=== PATIENT | male | born 1975 | race Caucasian/White ===

== ENCOUNTER 2016-04-09 23:22 | Emergency (ER) | payer OTHER ==
[~2016-04-09] VITALS: Ht 175.3 cm; Wt 89.8 kg
[~2016-04-09 23:22] MED LIST: ALFUZOSIN HCL E10 MG PO; AUGMENTIN 875 M1 TAB PO; AZITHROMYCIN250 M1 PO; BENTYL10 MG PO; BUSPIRONE HCL10 MG PO; CARAFATE1 GM/10 ML PO; CIPROFLOXACIN500 MG PO; FLOMAX(MONOGRA0.4 MG PO; GUAIFENESIN-COD10 ML PO; HYDROCODON-ACE1 EAC2 PO; IBUPROFEN800 MG PO; LEVSIN/SL0.125 MG SL; LEVSIN0.125 M1 PO; MEDROL4 M2 PO; MOBIC 15MG15 MG PO; MOTRIN800 MG PO; NEXIUM 40MG40 MG PO; PANTOPRAZOLE SO40 MG PO; PERCOCET 325 MG1 TA2 PO; PERCOCET 5-3251 EACH PO; PROMETH/CODEIN120 ML PO; PROMETHAZINE V120 M2 PO; REGLAN10 MG PO; TAMSULOSIN HYD0.4 MG PO; TESSALON PERLE100 MG PO; VENTOLIN HFA18 GM INH; VICODIN5-300 PO; ZOFRAN ODT4 M1 SL; ZOFRAN4 M2 PO
--- NOTE | 2016-04-10 00:01 | ED INFLUENZA/URI COMPLAINT ---
History of Present Illness General Chief Complaint: Upper Respiratory Sx/Fever Stated Complaint: CHILLS, COUGH, CONGESTION, CP Source: patient, family, old records Exam Limitations: no limitations Vital Signs & Intake/Output Vital Signs & Intake/Output Vital Signs Date Time Temp Pulse Resp B/P Pulse O2 O2 Flow FiO2 Ox Delivery Rate 04/10 0047 98 Room Air 04/09 2355 97.4 89 18 118/82 97 Room Air ED Intake and Output 04/10 0000 04/09 1200 Intake Total Output Total Balance Patient 198 lb Weight Allergies Coded Allergies: NO KNOWN ALLERGIES (01/18/16) Reconcile Medications Albuterol Sulfate (Ventolin Hfa) 90 MCG HFA.AER.AD 2 PUF INH Q4-6 PRN PRN WHEEZING/SHORTNESS OF BREATH Doxycycline Hyclate (Vibramycin) 100 MG CAPSULE 1 CAP PO BID LUNG INFECTION Hydrocodone/Acetaminophen (Hydrocodon-Acetaminophen 5-325) 5 MG-325 MG TABLET 1-2 TAB PO Q4-6 PRN PRN pain Hyoscyamine (Levsin) 0.125 MG TABLET 1-2 TAB PO Q6P PRN ABDOMINAL CRAMPS Methylprednisolone. (Medrol) 4 MG TAB.DS.PK 1 DP PO AD breathing Ondansetron (Zofran Odt) 4 MG TAB.RAPDIS 1 TAB SL Q6P PRN NAUSEA Ondansetron HCl (Zofran) 4 MG TABLET 1 TAB PO Q6-8P NAUSEA Oxycodone HCl/Acetaminophen (Percocet 5-325 MG Tablet) 5 MG-325 MG TABLET 1-2 TAB PO Q6P PRN ABDOMINAL PAIN Pantoprazole Sodium 40 MG TABLET.DR 1 TAB PO BID GI (Reported) Promethazine HCl/Codeine (Prometh-Codein 6.25-10 MG/5 Ml) 6.25 MG-10 MG/5 ML (5 ML) SYRUP 5 ML PO Q6H PRN COUGH Triage Note: PT TO ED C/O COUGH, CHEST CONGESTION, SORE THROAT, HEADACHE, JOINT PAIN FOR A DAY Triage Nurses Notes Reviewed? yes HPI: Patient is a 40-year-old male presents complaining of cough, congestion, sore throat. Symptoms onset yesterday. Cough with sputum production. Patient has been taking Mucinex with minimal improvement. Positive sick contacts at home with similar symptoms. Subjective fevers, positive chills. (ANGELA HESS) Past History Travel History Traveled to [place] past 21 day No Medical History Any Pertinent Medical History? 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 No (ANGELA HESS) Review of Systems Review of Systems Constitutional: Reports: chills, fever (SUBJECTIVE). EENTM: Reports: throat pain. Respiratory: Reports: cough, sputum production. Cardiovascular: Denies: chest pain. GI: Denies: abdominal pain, nausea, vomiting. Genitourinary: Reports: no symptoms. Musculoskeletal: Reports: muscle pain. Skin: Reports: no symptoms. Neurological/Psychological: Reports: no symptoms. Hematologic/Endocrine: Reports: no symptoms. Immunologic/Allergic: Reports: no symptoms. (ANGELA HESS) Physical Exam Physical Exam General Appearance: well developed/nourished, alert, awake Head: atraumatic, normal appearance Eyes: Bilateral: normal appearance, PERRL, EOMI. Ears, Nose, Throat: normal ENT inspection, moist mucous membrane, hearing grossly normal, Tympanic normal, pharynx normal Neck: normal inspection, supple, full range of motion Respiratory: chest non-tender, no respiratory distress, MINIMAL DIFFUSE EXPIRATORY WHEEZING. MILD RHONCHI RIGHT MIDLUNG Cardiovascular: regular rate/rhythm Gastrointestinal: soft, non-tender Back: normal inspection, normal range of motion, no vertebral tenderness Extremities: normal inspection, normal capillary refill, normal range of motion, no edema Neurologic/Psych: no motor/sensory deficits, awake, alert, oriented x 3, normal gait, normal mood/affect Skin: intact, normal color, warm/dry Lymphatic: no anterior cervical rylee Core Measures Severe Sepsis Present: No Septic Shock Present: No (ANGELA HESS) Progress Differential Diagnosis: influenza, pneumonia, pharyngitis, sinusitis Plan of Care: Orders Procedure Date/time Status XRY-CHEST XRAY, PA AND LATERAL 04/10 4 Active 04/10/2016 12:54:01 AM: Results of chest x-ray discussed with the patient and his . Patient nontoxic appearing, appears stable for discharge. Instructed patient to contact his primary care doctor on Monday for close follow-up. (ANGELA HESS) Diagnostic Imaging: Viewed by Me: Radiology Read. Discussed w/RAD: Radiology Read. Radiology Impression: PATIENT: JIE BURGOS PRESENT AGE: 40 PATIENT ACCOUNT NO: [id number] : 73 LOCATION: [facility] ORDERING PHYSICIAN: ANGELA FLOREZ SERVICE DATE: 04/10/16 EXAM TYPE: RAD - XRY-CHEST XRAY, PA AND LATERAL EXAMINATION: XR CHEST CLINICAL INFORMATION: Cough with sputum production. Fever and chills. COMPARISON: 01/18/2016 TECHNIQUE: 2 views of the chest were obtained. FINDINGS: The lungs are well expanded. There is no focal consolidation, edema, or effusion. Prominent bronchial wall thickening noted in the perihilar region bilaterally. No pneumothorax. The cardiomediastinal silhouette is within normal limits. No acute osseous abnormality. IMPRESSION: No dense consolidation. Bronchial wall thickening can be seen with a small airways process such as asthma or atypical/viral infection. DICTATED BY: EARLE NEWBERRY MD DATE/TIME DICTATED:04/10/1641 DIAMOND CLEAVER:IVANIA DATE/TIME TRANSCRIBED:04/10/1641 CONFIDENTIAL, DO NOT COPY WITHOUT APPROPRIATE AUTHORIZATION. <Electronically signed in Other Vendor System> SIGNED BY: EARLE NEWBERRY MD 04/10/1646 Initial ED EKG: none (ANGELA HESS) Departure Departure Disposition: HOME OR SELF CARE Condition: Stable Clinical Impression Primary Impression: Atypical pneumonia Referrals: CARMEN SALINAS,ANGELA Bingham (PCP/Family) Additional Instructions: Drink plenty fluids and rest. Follow-up with your primary doctor within 1 week for recheck and further evaluation, call Monday for appointment. Return to the ER if breathing worsening, unable to stay hydrated or worsening of symptoms. Departure Forms: Customer Survey General Discharge Information Prescriptions: Current Visit Scripts Promethazine HCl/Codeine (Prometh-Codein 6.25-10 MG/5 Ml) 5 ML PO Q6H PRN COUGH #100 ML Doxycycline Hyclate (Vibramycin) 1 CAP PO BID #14 CAP Methylprednisolone. (Medrol) 1 DP PO AD #1 DP Albuterol Sulfate (Ventolin Hfa) 2 PUF INH Q4-6 PRN PRN WHEEZING/SHORTNESS OF BREATH #1 INHAL (LINDSAY FLOREZ,ANGELA) PA/CUSTOM BOOKBINDER Co-Sign Statement Statement: ED Attending supervision documentation- [] I saw and evaluated the patient. I have also reviewed all the pertinent lab results and diagnostic results. I agree with the findings and the plan of care as documented in the PA's/CUSTOM BOOKBINDER's documentation. x I have reviewed the ED Record and agree with the PA's/CUSTOM BOOKBINDER's documentation. [] Additions or exceptions (if any) to the PAs/CUSTOM BOOKBINDER's note and plan are summarized below: [] (BERONICA SALINAS,TOM)
--- NOTE | 2016-04-10 00:47 | RADIOLOGY REPORT ---
EXAMINATION: XR CHEST CLINICAL INFORMATION: Cough with sputum production. Fever and chills. COMPARISON: 01/18/2016 TECHNIQUE: 2 views of the chest were obtained. FINDINGS: The lungs are well expanded. There is no focal consolidation, edema, or effusion. Prominent bronchial wall thickening noted in the perihilar region bilaterally. No pneumothorax. The cardiomediastinal silhouette is within normal limits. No acute osseous abnormality. IMPRESSION: No dense consolidation. Bronchial wall thickening can be seen with a small airways process such as asthma or atypical/viral infection.
[2016-04-10] MEDS ORDERED: VENTOLIN HFA18 GM INH (01:02)
[2016-04-10] MEDS ORDERED: VIBRAMYCIN100 MG PO (01:02)
[2016-04-10] MEDS ORDERED: PROMETH-CODEIN 65 ML PO (01:02)
[2016-04-10] MEDS ORDERED: MEDROL4 M2 PO (01:02)
[2016-04-10 01:24] VITALS: BP 115/78
== END 2016-04-10 01:26 ==
LOC: ERH 23:22
DX: J18.9 Pneumonia, unspecified organism (principal); F17.210 Nicotine dependence, cigarettes, uncomplicated

== ENCOUNTER 2016-05-12 22:28 | Emergency (ER) | payer OTHER ==
[~2016-05-12 22:28] MED LIST changes: +PROMETH-CODEIN 65 ML PO; +VIBRAMYCIN100 MG PO
--- NOTE | 2016-05-12 23:25 | ED GI/GU/ABDOMINAL COMPLAINT ---
History of Present Illness General Chief Complaint: Abdominal Pain/Flank Pain Stated Complaint: ABD PAIN, LOMELI, X 1 DAY Source: patient, family, old records Exam Limitations: no limitations Vital Signs & Intake/Output Vital Signs & Intake/Output Vital Signs Date Time Temp Pulse Resp B/P Pulse O2 O2 Flow FiO2 Ox Delivery Rate 05/12 2236 97.2 92 16 151/96 96 Room Air ED Intake and Output 05/13 0000 05/12 1200 Intake Total 1050 Output Total Balance 1050 Intake, IV 1050 Allergies Coded Allergies: NO KNOWN ALLERGIES (01/18/16) Reconcile Medications Albuterol Sulfate (Ventolin Hfa) 90 MCG HFA.AER.AD 2 PUF INH Q4-6 PRN PRN WHEEZING/SHORTNESS OF BREATH Doxycycline Hyclate (Vibramycin) 100 MG CAPSULE 1 CAP PO BID LUNG INFECTION Hydrocodone/Acetaminophen (Hydrocodon-Acetaminophen 5-325) 5 MG-325 MG TABLET 1-2 TAB PO Q4-6 PRN PRN pain Hyoscyamine (Levsin) 0.125 MG TABLET 1-2 TAB PO Q6P PRN ABDOMINAL CRAMPS Hyoscyamine Sulfate (Levsin-Sl) 0.125 MG TAB.SUBL 1-2 TAB SL Q4P PRN abd pain, diarrhea Loperamide HCl (Imodium A-D) 2 MG TABLET 0 PO SEE ADMIN CRITERIA PRN diarrhea 1 tab after each loose stool up to 7 per day Methylprednisolone. (Medrol) 4 MG TAB.DS.PK 1 DP PO AD breathing Ondansetron (Zofran Odt) 4 MG TAB.RAPDIS 1 TAB SL Q6P PRN NAUSEA Ondansetron HCl (Zofran) 4 MG TABLET 1 TAB PO Q6-8P NAUSEA Oxycodone HCl/Acetaminophen (Percocet 5-325 MG Tablet) 5 MG-325 MG TABLET 1-2 TAB PO Q6P PRN ABDOMINAL PAIN Pantoprazole Sodium 40 MG TABLET.DR 1 TAB PO BID GI (Reported) Promethazine HCl/Codeine (Prometh-Codein 6.25-10 MG/5 Ml) 6.25 MG-10 MG/5 ML (5 ML) SYRUP 5 ML PO Q6H PRN COUGH Tramadol HCl (Ultram) 50 MG TABLET 1-2 TAB PO Q6PRN PRN severe pain Triage Note: TRIAGE; PT TO ED C/O LOWER LEFT ABD PAIN WITH DIARRHEA. STATES HAS BEEN HAVING A HEADACHE X2 WEEKS, AND DEVELOPED A COUGH TODAY. Triage Nurses Notes Reviewed? yes Onset: 2 days Duration: day(s):, continues in ED Timing: recent history Quality/Severity: aching, moderate Location: left lower quadrant, right lower quadrant Radiation: no radiation Activities at Onset: none Prior Abdominal Problems: none Past Sexual History: Unobtainable at this time Modifying Factors: Worsens With: palpation. Associated Symptoms: abdominal pain, diarrhea, loss of bladder control HPI: 2 weeks prior to admission patient complains of frontal headache nasal congestion throbbing moderate severity. 2 days prior to admission he complains of nausea frequent loose watery stools bilateral lower quadrant moderate aching pain. He denies fever chills nausea vomiting chest pain cough shortness of breath dysuria rash bleeding. Past History Travel History Traveled to [place] past 21 day No Medical History Any Pertinent Medical History? 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 Tobacco Use: Never used Family History Hx Contributory? No Review of Systems Review of Systems Constitutional: Reports: see HPI, malaise. EENTM: Reports: see HPI, nasal congestion. Respiratory: Reports: no symptoms. Cardiovascular: Reports: no symptoms. GI: Reports: see HPI, abdominal pain, diarrhea, nausea. Genitourinary: Reports: no symptoms. Musculoskeletal: Reports: no symptoms. Skin: Reports: no symptoms. Hematologic/Endocrine: Reports: no symptoms. Immunologic/Allergic: Reports: no symptoms. All Other Systems: Reviewed and Negative Physical Exam Physical Exam General Appearance: well developed/nourished, alert, awake, anxious, mild distress, obese Head: atraumatic, normal appearance, tenderness (frontal sinus) Eyes: Bilateral: normal appearance, PERRL, EOMI, normal inspection. Ears, Nose, Throat, Mouth: hearing grossly normal, moist mucous membrane Neck: normal inspection, supple, full range of motion, normal alignment Respiratory: normal breath sounds, chest non-tender, no respiratory distress, quiet respiration, lungs clear Cardiovascular: regular rate/rhythm, normal peripheral pulses, norml femoral pulses equa Peripheral Pulses: 4+ carotid (R), 4+ carotid (L) Gastrointestinal: soft, abnormal bowel sounds, distention Male Genitals: normal genitalia Back: normal inspection, normal range of motion Extremities: normal range of motion Neurologic/Psych: no motor/sensory deficits, awake, alert, oriented x 3, normal gait, normal mood/affect, 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 No Severe Sepsis Present: No Septic Shock Present: No Progress Differential Diagnosis: diverticulitis, gastritis, pancreatitis Plan of Care: Orders Procedure Date/time Status LIPASE 05/12 2316 Complete COMPREHENSIVE METABOLIC PANEL 05/12 2316 Complete CBC WITHOUT DIFFERENTIAL 05/12 2316 Complete Laboratory Tests 05/12/16 2338: Anion Gap 9, Estimated GFR > 60, BUN/Creatinine Ratio 15.0, Glucose 80, Calcium 9.5, Total Bilirubin 0.3, AST 26, ALT 35, Alkaline Phosphatase 50, Total Protein 6.9, Albumin 4.0, Globulin 2.9, Albumin/Globulin Ratio 1.4, Lipase 217, CBC w Diff NO MAN DIFF REQ, RBC 4.90, MCV 88.3, MCH 29.7, RDW 13.6, MPV 8.5, Gran % 43.6, Lymphocytes % 43.6, Monocytes % 9.2, Eosinophils % 2.5, Basophils % 1.1, Absolute Granulocytes 4.7, Absolute Lymphocytes 4.7 H, Absolute Monocytes 1.0 H, Absolute Eosinophils 0.3, Absolute Basophils 0.1, PUBS MCHC 33.6 Initial ED EKG: none Departure Departure Time of Disposition: 52 Disposition: HOME OR SELF CARE Condition: Stable Clinical Impression Primary Impression: Sinus headache Secondary Impressions: Abdominal pain Qualifiers: Abdominal location: lower abdomen, unspecified Qualified Code: R10.30 - Lower abdominal pain, unspecified Diarrhea Qualifiers: Diarrhea type: unspecified type Qualified Code: R19.7 - Diarrhea, unspecified Referrals: CARMEN SALINAS,ANGELA Bingham (PCP/Family) Departure Forms: Customer Survey General Discharge Information Prescriptions: Current Visit Scripts Hyoscyamine Sulfate (Levsin-Sl) 1-2 TAB SL Q4P PRN abd pain, diarrhea #30 TAB Loperamide HCl (Imodium A-D) 0 PO SEE ADMIN CRITERIA PRN diarrhea #24 TAB 1 tab after each loose stool up to 7 per day Tramadol HCl (Ultram) 1-2 TAB PO Q6PRN PRN severe pain #30 TAB
[2016-05-12 23:45] LABS: ABSOLUTE BASOPHIL COUNT 0.1 /CUMM (0.0-0.2); ABSOLUTE EOSINOPHIL COUNT 0.3 /CUMM (0.0-0.7); ABSOLUTE GRANULOCYTE CT 4.7 /CUMM (1.4-6.5); ABSOLUTE LYMPH COUNT 4.7 /CUMM (1.2-3.4); BASOPHIL % 1.1 % (0.0-2.0); EOSINOPHIL % 2.5 % (0-5); GRANULOCYTE % 43.6 % (42.2-75.2); HEMATOCRIT 43.3 % (42-52); MEAN CORPUSCULAR HGB 29.7 PG (27.0-31.0); MEAN CORPUSCULAR HGB CONC 33.6 G/DL (33.0-37.0); MEAN CORPUSCULAR VOLUME 88.3 FL (80.0-94.0); MEAN PLATELET VOLUME 8.5 FL (7.4-10.4); PLATELET COUNT 240 /CUMM (130-400); RBC DISTRIBUTION WIDTH 13.6 % (11.5-14.5); WHITE BLOOD CELL COUNT 10.8 /CUMM (4.8-10.8)
[2016-05-13] MEDS ORDERED: LEVSIN-SL0.125 MG SL (00:56)
[2016-05-13] MEDS ORDERED: IMODIUM A-D2 M1 PO (00:56)
[2016-05-13] MEDS ORDERED: ULTRAM50 M1 PO (00:56)
[2016-05-13 01:10] VITALS: BP 134/67
== END 2016-05-13 01:15 ==
LOC: ERH 22:28
PROVIDERS: Emergency Medicine
DX: R51 Headache (principal); R10.32 Left lower quadrant pain; R19.7 Diarrhea, unspecified
CPT/HCPCS: 96365; 96375; J2765

== ENCOUNTER 2016-05-18 17:47 | Emergency (ER) | payer OTHER ==
[~2016-05-18] VITALS: Ht 175.3 cm; Wt 89.4 kg
[~2016-05-18 17:47] MED LIST changes: +IMODIUM A-D2 M1 PO; +LEVSIN-SL0.125 MG SL; +ULTRAM50 M1 PO
--- NOTE | 2016-05-18 20:35 | ED HEADACHE COMPLAINT ---
History of Present Illness General Chief Complaint: General Adult Stated Complaint: CONGESTION LOMELI JOINT PAIN XS 2 WEEKS Source: patient, family Exam Limitations: no limitations Vital Signs & Intake/Output Vital Signs & Intake/Output Vital Signs Date Time Temp Pulse Resp B/P Pulse O2 O2 Flow FiO2 Ox Delivery Rate 05/18 2148 78 18 129/84 97 05/19 2019 97 Room Air 05/18 1753 97.4 80 20 105/72 97 Room Air ED Intake and Output 05/19 0000 05/18 1200 Intake Total Output Total Balance Patient 197 lb Weight Allergies Coded Allergies: NO KNOWN ALLERGIES (01/18/16) Reconcile Medications Albuterol Sulfate (Ventolin Hfa) 90 MCG HFA.AER.AD 2 PUF INH Q4-6 PRN PRN WHEEZING/SHORTNESS OF BREATH Azithromycin 250 MG TABLET 1 DP PO AD SINUSITIS 2 the first day followed by 1 for days 2-5 Doxycycline Hyclate (Vibramycin) 100 MG CAPSULE 1 CAP PO BID LUNG INFECTION Hydrocodone/Acetaminophen (Hydrocodon-Acetaminophen 5-325) 5 MG-325 MG TABLET 1-2 TAB PO Q4-6 PRN PRN pain Hyoscyamine (Levsin) 0.125 MG TABLET 1-2 TAB PO Q6P PRN ABDOMINAL CRAMPS Hyoscyamine Sulfate (Levsin-Sl) 0.125 MG TAB.SUBL 1-2 TAB SL Q4P PRN abd pain, diarrhea Loperamide HCl (Imodium A-D) 2 MG TABLET 0 PO SEE ADMIN CRITERIA PRN diarrhea 1 tab after each loose stool up to 7 per day Methylprednisolone. (Medrol) 4 MG TAB.DS.PK 1 DP PO AD breathing Ondansetron (Zofran Odt) 4 MG TAB.RAPDIS 1 TAB SL Q6P PRN NAUSEA Ondansetron HCl (Zofran) 4 MG TABLET 1 TAB PO Q6-8P NAUSEA Oxycodone HCl/Acetaminophen (Percocet 5-325 MG Tablet) 5 MG-325 MG TABLET 1-2 TAB PO Q6P PRN ABDOMINAL PAIN Pantoprazole Sodium 40 MG TABLET.DR 1 TAB PO BID GI (Reported) Promethazine HCl/Codeine (Prometh-Codein 6.25-10 MG/5 Ml) 6.25 MG-10 MG/5 ML (5 ML) SYRUP 5 ML PO Q6H PRN COUGH Promethazine HCl/Codeine (Promethazine-Codeine Syrup) 6.25 MG-10 MG/5 ML SYRUP 5 ML PO Q4-6 PRN COUGH Tramadol HCl (Ultram) 50 MG TABLET 1-2 TAB PO Q6PRN PRN severe pain Triage Note: C/O FRONTAL HEADACHE X 2 WEEKS (INTERMITTANT), CHEST PAIN TODAY WITH COUGH. DENIES SOB. Triage Nurses Notes Reviewed? yes HPI: This patient is a 40-year-old male who presented to the emergency department today for evaluation of headache 2 weeks. The patient reported that he was seen here in the emergency department for a headache 2 weeks ago and was diagnosed with a sinus headache. He was given a nasal spray. He reported that Tylenol sometimes helps his headache. It was intermittent, but today the pain became constant. The pain gets up to an 8 out of 10 and is throbbing. It starts on the right side of his fore head and travels across to the left side of his fore head. The patient denied any visual changes, neck pain, ear pain, fevers, chills, or difficulty breathing. The patient reported that he was having some central chest pain today. He reported that he did EKG, but is refusing any blood work. He denied any current chest pain. The patient reported that he has had some intermittent diarrhea over the last several weeks. (EDWARD MCKEON PA-C) Past History Travel History Traveled to [place] past 21 day No Medical History Any Pertinent Medical History? 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 No (EDWARD MCKEON PA-C) Review of Systems Review of Systems Constitutional: Reports: no symptoms. Eyes: Reports: no symptoms. Ears, Nose, Throat, Mouth: Reports: no symptoms. Respiratory: Reports: no symptoms. Cardiovascular: Reports: see HPI. Gastrointestinal/Abdominal: Reports: see HPI. Genitourinary: Reports: no symptoms. Musculoskeletal: Reports: no symptoms. Skin: Reports: no symptoms. Neurological/Psychological: Reports: see HPI. All Other Systems: Reviewed and Negative (LINDA ARAUJO,EDWARD) Physical Exam Physical Exam Cranial Nerves: normal hearing, normal speech, PERRL Comments: Well-developed well-nourished person in no acute distress HEENT: Normal EENT exam, head normocephalic/atraumatic no bony deformity/step- off to the skull PERRLA bilaterally Neck: Supple, no lymphadenopathy. Full range of motion with no midline tenderness Back: Normal gait Cardiovascular: Regular rate and rhythm with no murmurs, rubs, or gallops Respiratory: Chest nontender. No respiratory distress. Breath sounds clear to auscultation bilaterally Extremity: Normal and equal pulses Neuro: Alert oriented x3, motor sensory normal, cranial nerves II through XII grossly intact. No aphasia. No facial droop. No unilateral weakness Skin: No appreciable rash on exposed skin, skin is warm and dry. Psych: Mood and affect is normal Core Measures Severe Sepsis Present: No Septic Shock Present: No (LINDA ARUAJO,EDWARD) Progress Differential Diagnosis: carotid dissection, cav sinus thromb, cluster LOMELI, encephalitis, IC mass/tumor, intracranial Hem., meningitis, migraine LOMELI, musculoskeletal pain, sinusitis, SSS thrombosis, subarach. Hem., tension LOMELI, temporal arteritis, TMJ syndrome, viral cephalgia Plan of Care: Orders Procedure Date/time Status EKG 05/18 1752 Active Diagnostic Imaging: Viewed by Me: CT Scan. Discussed w/RAD: CT Scan. Radiology Impression: PATIENT: JIE BURGOS PRESENT AGE: 40 PATIENT ACCOUNT NO: [id number] : 73 LOCATION: [facility] ORDERING PHYSICIAN: EDWARD MCKEON PA-C SERVICE DATE: 05/18/16 EXAM TYPE: CAT - CT FACE/SINUS WITHOUT CONT; CT HEAD WO IV CONTRAST CT HEAD WITHOUT IV CONTRAST CT MAXILLOFACIAL WITHOUT IV CONTRAST INDICATION: Headache to rule out sinusitis. COMPARISON: None available. TECHNIQUE: Multidetector CT acquisitions of the head and maxillofacial region were obtained without IV contrast. Multiplanar reformats were acquired and utilized for image interpretation. FINDINGS: HEAD: There is no intracranial hemorrhage, hydrocephalus, extra-axial surface collection, midline shift, or other herniation pattern. Beverly to white matter differentiation is diffusely maintained without evidence of an evolved acute territorial infarct. The basilar cisterns are preserved. No significant soft tissue abnormality. No acute osseous abnormality. There is a sessile osteoma along the posterolateral aspect of the right parietal bone. MAXILLOFACIAL: No acute osseous findings. There are small air/fluid levels within the right and left maxillary sinus. Trace mucosal thickening throughout the ethmoid air cells. The frontal sinuses and the sphenoid sinuses are clear. There is severe rightward deviation of the nasal septum with a rightward directed septal spur that results in deflection of the undersurface of the right middle turbinate. There is mild polypoid soft tissue within the right left maxillary ostium which remain patent. Vertical lamella of the right and left middle turbinates are pneumatized. The bony orbits are intact. The right mastoid air cells are underdeveloped and there is a small right mastoid effusion. IMPRESSION: -There are trace fluid levels within the maxillary sinuses bilaterally that can be correlated for clinical signs of acute sinusitis. - There are no acute intracranial findings. - There is severe rightward deviation of the nasal septum with a rightward directed septal spur that results in deflection of the undersurface of the right middle turbinate. DICTATED BY: FABI AUSTIN MD DATE /TIME DICTATED:05/18/162121 BODY PIERCER:IVANIA DATE/TIME TRANSCRIBED: 05/18/162121 CONFIDENTIAL, DO NOT COPY WITHOUT APPROPRIATE AUTHORIZATION. < Electronically signed in Other Vendor System> SIGNED BY: FABI AUSTIN MD 05/18/162136 Initial ED EKG: normal axis, normal intervals, no ST T wave changes, 75 bpm Comments: 05/18/2016 8:34:35 PM: Patient is requesting a CT of the head to evaluate his sinuses. He is refusing any blood work at this time stating, "I just had blood work done 3 days ago." (LINDA ARAUJO,EDWARD) Departure Departure Disposition: HOME OR SELF CARE Condition: Stable Clinical Impression Primary Impression: Sinusitis Qualifiers: Sinusitis location: maxillary Chronicity: unspecified Qualified Code: J32.0 - Chronic maxillary sinusitis Referrals: CARMEN SALINAS,ANGELA Bingham (PCP/Family) JON SALINAS,JAS Additional Instructions: Take antibiotic as prescribed for sinusitis. Take medication for cough as prescribed. Please follow-up with the ENT physician whose information has been provided to you in this packet. Return for any worsening symptoms or concerns. Departure Forms: Customer Survey General Discharge Information Prescriptions: Current Visit Scripts Azithromycin 1 DP PO AD #6 TAB 2 the first day followed by 1 for days 2-5 Promethazine HCl/Codeine (Promethazine-Codeine Syrup) 5 ML PO Q4-6 PRN COUGH #100 ML (LINDA ARAUJO,EDWARD) PA/PREVENTIVE MAINTENANCE ENGINEER Co-Sign Statement Statement: ED Attending supervision documentation- [] I saw and evaluated the patient. I have also reviewed all the pertinent lab results and diagnostic results. I agree with the findings and the plan of care as documented in the PA's/PREVENTIVE MAINTENANCE ENGINEER's documentation. [X] I have reviewed the ED Record and agree with the PA's/PREVENTIVE MAINTENANCE ENGINEER's documentation. [] Additions or exceptions (if any) to the PAs/PREVENTIVE MAINTENANCE ENGINEER's note and plan are summarized below: [] (DIANNA SALINAS,CHRISTIANO)
--- NOTE | 2016-05-18 21:37 | CT SCAN REPORT ---
CT HEAD WITHOUT IV CONTRAST CT MAXILLOFACIAL WITHOUT IV CONTRAST INDICATION: Headache to rule out sinusitis. COMPARISON: None available. TECHNIQUE: Multidetector CT acquisitions of the head and maxillofacial region were obtained without IV contrast. Multiplanar reformats were acquired and utilized for image interpretation. FINDINGS: HEAD: There is no intracranial hemorrhage, hydrocephalus, extra-axial surface collection, midline shift, or other herniation pattern. Beverly to white matter differentiation is diffusely maintained without evidence of an evolved acute territorial infarct. The basilar cisterns are preserved. No significant soft tissue abnormality. No acute osseous abnormality. There is a sessile osteoma along the posterolateral aspect of the right parietal bone. MAXILLOFACIAL: No acute osseous findings. There are small air/fluid levels within the right and left maxillary sinus. Trace mucosal thickening throughout the ethmoid air cells. The frontal sinuses and the sphenoid sinuses are clear. There is severe rightward deviation of the nasal septum with a rightward directed septal spur that results in deflection of the undersurface of the right middle turbinate. There is mild polypoid soft tissue within the right left maxillary ostium which remain patent. Vertical lamella of the right and left middle turbinates are pneumatized. The bony orbits are intact. The right mastoid air cells are underdeveloped and there is a small right mastoid effusion. IMPRESSION: -There are trace fluid levels within the maxillary sinuses bilaterally that can be correlated for clinical signs of acute sinusitis. - There are no acute intracranial findings. - There is severe rightward deviation of the nasal septum with a rightward directed septal spur that results in deflection of the undersurface of the right middle turbinate.
[2016-05-18] MEDS ORDERED: PROMETHAZINE-C118 ML PO (21:47)
[2016-05-18] MEDS ORDERED: AZITHROMYCIN250 M1 PO (21:47)
[2016-05-18 21:48] VITALS: BP 129/84
== END 2016-05-18 22:07 ==
LOC: ERH 17:47
DX: J32.9 Chronic sinusitis, unspecified (principal); Z72.0 Tobacco use; R07.9 Chest pain, unspecified
CPT/HCPCS: 93005; 93010; 96372; J1885

== ENCOUNTER 2017-08-15 20:45 | Emergency (ER) | payer OTHER ==
[~2017-08-15 20:45] MED LIST changes: +ACIPHEX20 M1 PO; +AUGMENTIN 875-1 EACH PO; +BENTYL10 M1 PO; +CARAFATE1 G1 PO; +CARAFATE1 GM/10 M1 PO; +CHERATUSSIN AC118 M1 PO; +IBUPROFEN800 M1 PO; +PANTOPRAZOLE SO40 M1 PO; +PREDNISONE10 M2 PO; +PROMETHAZINE-C118 ML PO; +TESSALON PERLE100 M1 PO
[2017-08-15 20:48] VITALS: BP 128/85
--- NOTE | 2017-08-15 21:54 | ED GENERAL ADULT ---
History of Present Illness General Chief Complaint: General Adult Stated Complaint: VOMITING, CHILLS, SORE THROAT Source: patient, family (), old records Exam Limitations: no limitations Vital Signs & Intake/Output Vital Signs & Intake/Output Vital Signs Date Time Temp Pulse Resp B/P B/P Pulse O2 O2 Flow FiO2 Mean Ox Delivery Rate 08/16 2047 97.9 98 17 128/85 97 Room Air ED Intake and Output 08/16 0000 08/15 1200 Intake Total Output Total Balance Patient 196 lb Weight Weight Reported by Patient Measurement Method Allergies Coded Allergies: No Known Allergies (01/29/17) Reconcile Medications Amoxicillin/Potassium Clav (Augmentin 875-125 Tablet) 875 MG-125 MG TABLET 1 TAB PO BID uri Ibuprofen 800 MG TABLET 1 TAB PO TID PRN PAIN Lidocaine HCl (Lidocaine HCl Viscous) 2 % SOLUTION 15 ML PO 4 TIMES/DAY PRN acid reflux Metoclopramide HCl (Reglan) 10 MG TABLET 1 TAB PO 4 TIMES/DAY PRN nausea 30 minutes before meals and bedtime Promethazine HCl/Codeine (Promethazine-Codeine Syrup) 6.25 MG-10 MG/5 ML SYRUP 5 ML PO Q4-6 PRN COUGH Promethazine HCl/Codeine (Promethazine-Codeine Syrup) 6.25 MG-10 MG/5 ML SYRUP 5 ML PO Q4-6 PRN cough Promethazine HCl/Codeine (Prometh-Codein 6.25-10 MG/5 Ml) 6.25 MG-10 MG/5 ML (5 ML) SYRUP 5 ML PO Q6HR PRN COUGH Rabeprazole Sodium (Aciphex) 20 MG TABLET.DR 1 TAB PO DAILY REFLUX (Reported) Sucralfate (Carafate) 1 GRAM/10 ML ORAL.SUSP 10 ML PO BID GERD (Reported) 1 hour before food Triage Note: PT TO ED WITH C/O 3 DAYS OF NAUSEA/VOMITING. ALSO REPORTS CHILLS AND SORE THROAT. REPORTS MILD ABD DISCOMFORT. Triage Nurses Notes Reviewed? yes Onset: Abrupt Duration: day(s): (3), changing over time, continues in ED Timing: recent history Injury Environment: home Severity: mild, moderate No Modifying Factors: none HPI: 41-year-old male history of GERD and pancreatitis presents for evaluation of nausea. Patient states it started about 3 days ago. He denies any vomiting but states he feels like he needs to. He states he has had multiple similar episodes in the past related to his acid reflux. He states that he had surgery on his esophageal sphincter several years ago and ever since has had problems intermittently. He states sometimes gets an epigastric burning but currently has no abdominal pain. No chest pain. He is taking Zofran without any improvement. No back pain shortness of breath fever diarrhea melena. He also admits to a dry cough is also an ongoing problem since his surgery. (Kyle Huff) Past History Travel History Traveled to [place] past 21 day No Medical History Any Pertinent Medical History? 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 No (Kyle Huff) Review of Systems Review of Systems Constitutional: Reports: no symptoms. EENTM: Reports: no symptoms. Respiratory: Reports: cough. Cardiovascular: Reports: no symptoms. GI: Reports: nausea. Genitourinary: Reports: no symptoms. Musculoskeletal: Reports: no symptoms. Skin: Reports: no symptoms. Neurological/Psychological: Reports: no symptoms. Hematologic/Endocrine: Reports: no symptoms. Immunologic/Allergic: Reports: no symptoms. All Other Systems: Reviewed and Negative (Kyle Huff) Physical Exam Physical Exam General Appearance: well developed/nourished, no apparent distress, alert, awake Head: atraumatic, normal appearance Eyes: Bilateral: normal appearance, EOMI. Ears, Nose, Throat: hearing grossly normal Neck: normal inspection, supple, full range of motion Respiratory: normal breath sounds, chest non-tender, no respiratory distress, lungs clear Cardiovascular: regular rate/rhythm, normal peripheral pulses Peripheral Pulses: 2+ radial (R), 2+ radial (L) Gastrointestinal: normal bowel sounds, soft, non-tender, no organomegaly Back: normal inspection, normal range of motion, no vertebral tenderness Extremities: normal inspection, normal range of motion, no edema Neurologic/Psych: no motor/sensory deficits, awake, alert, oriented x 3, normal gait Skin: intact, normal color, warm/dry Lymphatic: no anterior cervical rylee Core Measures ACS in differential dx? No CVA/TIA Diagnosis: No Sepsis Present: No Sepsis Focused Exam Completed? No (Kyle Huff) Progress Differential Diagnoses I considered the following diagnoses in my evaluation of the patient: [GERD, pancreatitis, gastritis, gastroenteritis] Plan of Care: Orders Procedure Date/time Status TROPONIN LEVEL 08/15 2201 Complete LIPASE 08/15 2201 Complete C-REACTIVE PROTEIN 08/15 2201 Complete COMPREHENSIVE METABOLIC PANEL 08/15 2201 Complete CBC WITHOUT DIFFERENTIAL 08/15 2201 Complete THROAT CULTURE W/QUICK STREP 08/15 2050 Active Laboratory Tests 08/15/172215: Anion Gap 8, Estimated GFR > 60, BUN/Creatinine Ratio 10.0, Glucose 103 H, Calcium 9.2, Total Bilirubin 0.4, AST 26, ALT 23, Alkaline Phosphatase 56, Troponin I < 0.01, C-Reactive Prot, Quant < 0.5, Total Protein 6.8, Albumin 3.8, Globulin 3.0, Albumin/Globulin Ratio 1.3, Lipase 188, CBC w Diff NO MAN DIFF REQ , RBC 5.10, MCV 86.6, MCH 29.3, MCHC 33.8, RDW 14.2, MPV 8.2, Gran % 49.9, Lymphocytes % 39.2, Monocytes % 8.4, Eosinophils % 1.8, Basophils % 0.7, Absolute Granulocytes 4.8, Absolute Lymphocytes 3.7 H, Absolute Monocytes 0.8 H, Absolute Eosinophils 0.2, Absolute Basophils 0.1 Patient is here with nausea that is been recurrent since the surgery a few years ago. His abdomen is soft and nontender his vitals are stable he denies chest pain or shortness of breath. Currently only reporting nausea and a dry cough. Patient was medicated with GI cocktail and Reglan and with good improvement. Labs are unremarkable. Patient was instructed to continue PPI Zofran and Reglan as needed. Promethazine codeine as needed for cough. Follow up with primary care doctor. Discussed return precautions patient agrees to plan. Initial ED EKG: none (Kyle Huff) Departure Departure Disposition: HOME OR SELF CARE Condition: Stable Clinical Impression Primary Impression: Nausea Referrals: Zehra SALINAS,Sivakumar Bingham (PCP/Family) Additional Instructions: Reglan and viscous lidocaine as needed for nausea and acid reflux. Promethazine /codeine as needed for cough. Make a follow-up with her primary care doctor to review all results of today's visit monitor symptoms closely return with any concerns. Departure Forms: Customer Survey General Discharge Information Prescriptions: Current Visit Scripts Metoclopramide HCl (Reglan) 1 TAB PO 4 TIMES/DAY PRN nausea #20 TAB 30 minutes before meals and bedtime Lidocaine HCl (Lidocaine HCl Viscous) 15 ML PO 4 TIMES/DAY PRN acid reflux #100 ML Promethazine HCl/Codeine (Promethazine-Codeine Syrup) 5 ML PO Q4-6 PRN cough #120 ML (Kyle Huff) PA/GENERAL CAR SUPERVISOR YARD Co-Sign Statement Statement: ED Attending supervision documentation- [] I saw and evaluated the patient. I have also reviewed all the pertinent lab results and diagnostic results. I agree with the findings and the plan of care as documented in the PA's/GENERAL CAR SUPERVISOR YARD's documentation. []x I have reviewed the ED Record and agree with the PA's/GENERAL CAR SUPERVISOR YARD's documentation. [] Additions or exceptions (if any) to the PAs/GENERAL CAR SUPERVISOR YARD's note and plan are summarized below: [] (Joelle SALINAS,[place]ato [place]) Critical Care Note Critical Care Note Critical Care Time: non-applicable (Kyle Huff)
[2017-08-15 22:28] LABS: ABSOLUTE BASOPHIL COUNT 0.1 /CUMM (0.0-0.2); ABSOLUTE EOSINOPHIL COUNT 0.2 /CUMM (0.0-0.7); ABSOLUTE GRANULOCYTE CT 4.8 /CUMM (1.4-6.5); ABSOLUTE LYMPH COUNT 3.7 /CUMM (1.2-3.4); ABSOLUTE MONOCYTE COUNT 0.8 /CUMM (0.10-0.60); BASOPHIL % 0.7 % (0.0-2.0); EOSINOPHIL % 1.8 % (0-5); GRANULOCYTE % 49.9 % (42.2-75.2); HEMATOCRIT 44.1 % (42-52); MEAN CORPUSCULAR HGB 29.3 PG (27.0-31.0); MEAN CORPUSCULAR HGB CONC 33.8 G/DL (33.0-37.0); MEAN CORPUSCULAR VOLUME 86.6 FL (80.0-94.0); MEAN PLATELET VOLUME 8.2 FL (7.4-10.4); PLATELET COUNT 251 /CUMM (130-400); RBC DISTRIBUTION WIDTH 14.2 % (11.5-14.5); WHITE BLOOD CELL COUNT 9.6 /CUMM (4.8-10.8)
[2017-08-15] MEDS ORDERED: LIDOCAINE HCL V15 ML PO (23:13)
[2017-08-15] MEDS ORDERED: PROMETHAZINE-C118 ML PO (23:13)
[2017-08-15] MEDS ORDERED: REGLAN10 M1 PO (23:13)
== END 2017-08-15 23:16 ==
LOC: ERH 20:45
PROVIDERS: Physician Assistant Medical
DX: R11.2 Nausea with vomiting, unspecified (principal)

== ENCOUNTER 2017-11-30 22:25 | Emergency (ER) | payer OTHER ==
[~2017-11-30] VITALS: Ht 180.3 cm; Wt 99.8 kg
[~2017-11-30 22:25] MED LIST changes: +LIDOCAINE HCL V15 ML PO; +REGLAN10 M1 PO
--- NOTE | 2017-12-01 00:14 | ED INFLUENZA/URI COMPLAINT ---
History of Present Illness General Chief Complaint: General Adult Stated Complaint: PT HAS PROBLEM WITH STOMACH ,VOMITING Source: patient, Exam Limitations: no limitations Vital Signs & Intake/Output Vital Signs & Intake/Output Vital Signs Date Time Temp Pulse Resp B/P B/P Pulse O2 O2 Flow FiO2 Mean Ox Delivery Rate 11/302 98.1 95 18 113/84 96 Room Air ED Intake and Output 12/01 0000 11/30 1200 Intake Total Output Total Balance Patient 220 lb Weight Weight Reported by Patient Measurement Method Allergies Coded Allergies: No Known Allergies (01/29/17) Reconcile Medications Amoxicillin/Potassium Clav (Augmentin 875-125 Tablet) 875 MG-125 MG TABLET 1 TAB PO BID uri Augmentin (Augmentin 500-125 Tablet) 500 MG-125 MG TABLET 1 TAB PO TID INFECTION Ibuprofen 800 MG TABLET 1 TAB PO TID PRN PAIN Lidocaine HCl (Lidocaine HCl Viscous) 2 % SOLUTION 15 ML PO 4 TIMES/DAY PRN acid reflux Metoclopramide HCl (Reglan) 10 MG TABLET 1 TAB PO Q6 PRN NAUSEA/VOMITING 30 minutes before meals and bedtime Metoclopramide HCl (Reglan) 10 MG TABLET 1 TAB PO 4 TIMES/DAY PRN nausea 30 minutes before meals and bedtime Promethazine HCl/Codeine (Prometh-Codein 6.25-10 MG/5 Ml) 6.25 MG-10 MG/5 ML (5 ML) SYRUP 5-10 ML PO Q6 PRN COUGH Promethazine HCl/Codeine (Promethazine-Codeine Syrup) 6.25 MG-10 MG/5 ML SYRUP 5 ML PO Q4-6 PRN COUGH Promethazine HCl/Codeine (Promethazine-Codeine Syrup) 6.25 MG-10 MG/5 ML SYRUP 5 ML PO Q4-6 PRN cough Promethazine HCl/Codeine (Prometh-Codein 6.25-10 MG/5 Ml) 6.25 MG-10 MG/5 ML (5 ML) SYRUP 5 ML PO Q6HR PRN COUGH Rabeprazole Sodium (Aciphex) 20 MG TABLET.DR 1 TAB PO DAILY REFLUX (Reported) Sucralfate (Carafate) 1 GRAM/10 ML ORAL.SUSP 10 ML PO BID GERD (Reported) 1 hour before food Triage Note: PT FROM HOME C/O OF LLQ ABD PAIN 10/10 PAIN THAT RADIATING FROM LEFT TO RIGHT QUADRANT. PTS VSS. PT STATES HIS ABD HAS BEEN BLOATED SINCE YESTERDAY, PT HAS HX OF ACID REFLUX. PT IS ABLE TO TOLERATE LIQUIDS PO, NOT FOOD, VOMITS IMMEDIATELY AFTER FOOD. VOMITED 1X EPISODE TODAY. Triage Nurses Notes Reviewed? yes HPI: Patient presents for evaluation of a cough with phlegm production along with nausea and vomiting over the past 3-4 days. Patient presents tonight because he states he "is not getting better". He denies associated diarrhea or rashes. His states that there have been a number of ill family members recently with ear infections and that his mother is taking an antibiotic currently. He is a smoker but denies alcohol or drug use. He has had bronchitis in the past. Past History Travel History Traveled to [place] past 21 day No Medical History Any Pertinent Medical History? 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 No Review of Systems Review of Systems Constitutional: Reports: no symptoms. EENTM: Reports: no symptoms. Respiratory: Reports: see HPI. Cardiovascular: Reports: no symptoms. GI: Reports: see HPI. Genitourinary: Reports: no symptoms. Musculoskeletal: Reports: no symptoms. Skin: Reports: no symptoms. Neurological/Psychological: Reports: no symptoms. Hematologic/Endocrine: Reports: no symptoms. Immunologic/Allergic: Reports: no symptoms. All Other Systems: Reviewed and Negative Physical Exam Physical Exam Ears, Nose, Throat: SEE BELOW Comments: Gen.: Well-nourished, well-developed, no acute respiratory distress. Head: Normocephalic, atraumatic. Eyes: Normal inspection bilaterally Ears: Normal inspection bilaterally Nose: Normal inspection Throat/mouth : Moist mucosa Neck: Supple, full range of motion, no goiter Heart: Regular rate and rhythm, no murmurs rubs or gallops Lungs: Clear to auscultation bilaterally with normal air entry, occasional loose cough Chest: Nontender Back: Normal range of motion Abdomen: Soft, nontender, nondistended, normal bowel sounds Extremities: Normal range of motion grossly, equal radial pulses, no cyanosis clubbing or edema Neurologic: Cranial nerves grossly intact, speech is clear Skin: warm and dry Psychiatric: Calm, cooperative, no apparent delusions or hallucinations Core Measures Sepsis Present: No Sepsis Focused Exam Completed? No Progress Differential Diagnosis: pneumonia, BRONCHITIS, VIRAL SYNDROME Plan of Care: Orders Procedure Date/time Status EKG 11/30 2232 Active Initial ED EKG: NSR, rate (79) Prior EKG: unchanged Departure Departure Disposition: HOME OR SELF CARE Condition: Stable Clinical Impression Primary Impression: Viral syndrome Referrals: Zehra SALINAS,Sivakumar Bingham (PCP/Family) Additional Instructions: Augmentin as prescribed for possible bronchitis. Phenergan and codeine as prescribed for cough. Reglan as prescribed for nausea or vomiting. Try to quit smoking. Drink lots of fluids. Follow-up with your primary care physician on Monday for reevaluation. Return if any concerns or sudden worsening. Thank you for choosing the [facility] for your care. It was a pleasure to serve you today. Dhiraj Alonzo M.D. [facility] Departure Forms: Customer Survey General Discharge Information Prescriptions: Current Visit Scripts Metoclopramide HCl (Reglan) 1 TAB PO Q6 PRN NAUSEA/VOMITING #10 TAB 30 minutes before meals and bedtime Promethazine HCl/Codeine (Prometh-Codein 6.25-10 MG/5 Ml) 5-10 ML PO Q6 PRN COUGH #120 ML Augmentin (Augmentin 500-125 Tablet) 1 TAB PO TID #21 TAB
[2017-12-01] MEDS ORDERED: REGLAN10 M1 PO (00:17)
[2017-12-01] MEDS ORDERED: AUGMENTIN 500-1 EACH PO (00:17)
[2017-12-01] MEDS ORDERED: PROMETH-CODEIN 65 ML PO (00:17)
[2017-12-01 00:26] VITALS: BP 118/78
== END 2017-12-01 00:26 ==
LOC: ERH 22:25
DX: B34.9 Viral infection, unspecified (principal); K21.9 Gastro-esophageal reflux disease without esophagitis; F17.210 Nicotine dependence, cigarettes, uncomplicated
CPT/HCPCS: 93005; 93010